=== PATIENT | male | born 1965 | race Caucasian/White ===

== ENCOUNTER 2021-04-05 11:15 | Emergency (ER) | payer OTHER, SELFPAY ==
[2021-04-05 11:24] VITALS: BP 146/79; PULSE 82; RESP 16; TEMP 36.5; O2SAT 100
--- NOTE | 2021-04-05 11:29 | ED.EAR ---
HPI - Ear Problem General Chief complaint: Ear Stated complaint: EARS CLOGGED Time Seen by Provider: 04/05/21 11:30 Source: patient and RN notes reviewed History of Present Illness HPI Narrative: Patient is a 56-year-old male who presents the urgent care with complaints of bilateral ears clogged. Patient states that he had decreased hearing on the right. States that he is tried to use Debrox for the last couple days which has not resolved the issue. Denies of any other acute complaints. No acute distress noted. Patient aware of the plan of care. Some parts of this dictation were generated by voice recognition software and may contain typographical and/or grammatical inaccuracies. Related Data Allergies Allergy/AdvReac Type Severity Reaction Status Date / Time No Known Allergies Allergy Verified 04/05/21 11:22 Review of Systems Review of Systems: CONSTITUTIONAL: Denies fever, chills, or sweats. EYES: Denies visual changes, redness, or discharge. ENT: Denies rhinorrhea, congestion, sore throat. Reports a bilateral ears clogged with decreased hearing on the right CARDIOVASCULAR: Denies chest pain, palpitations, or edema. RESPIRATORY: Denies cough or dyspnea. GASTROINTESTINAL: Denies abdominal pain, nausea, vomiting, or diarrhea. GENITOURINARY: Denies dysuria or hematuria. SKIN: Denies rash or itching. MUSCULOSKELETAL: Denies back pain, joint pain, or myalgia. NEUROLOGIC: Denies headache, numbness, or weakness. All other systems reviewed are negative, except as documented in HPI. PMFSH Comments At the time of my signature, I reviewed and agree with the nursing past medical, surgical, social, and family history. There is no relevant family history pertinent to the patient complaint. Exam Narrative: GENERAL: This is a well-nourished, well-developed patient, in no apparent distress. HEAD: normocephalic, atraumatic. EYES: PERRL. Sclera clear/white. Vision is grossly intact. EARS: External ears normal, auditory canals clear and without drainage, unable to visualize bilateral true EMs due to cerumen impaction. Hearing grossly intact. NOSE: External nose normal with no obvious nasal discharge, nares without redness, no rhinorrhea. THROAT: Mucous membranes moist, posterior pharynx clear. NECK: Neck supple CARDIOVASCULAR: Regular rate and rhythm without murmurs, gallops, or rubs. RESPIRATORY: Clear to auscultation. Breath sounds equal bilaterally. No wheezes, rales, or rhonchi. SKIN: warm, intact with no suspicious lesions or rash, good texture and turgor. NEURO: awake, alert, and oriented to person, place and time. There were no obvious focal neurologic abnormalities. EXTREMITIES: No clubbing, cyanosis, or edema. Course Vital Signs Vital signs: Vital Signs Temperature 97.7 F 04/05/21 11:24 Pulse Rate 82 04/05/21 11:24 Respiratory Rate 16 04/05/21 11:24 Blood Pressure 146/79 H 04/05/21 11:24 Pulse Oximetry 100 04/05/21 11:24 Temperature 97.7 F 04/05/21 11:24 Pulse Rate 82 04/05/21 11:24 Respiratory Rate 16 04/05/21 11:24 Blood Pressure 146/79 H 04/05/21 11:24 Pulse Oximetry 100 04/05/21 11:24 Reviewed-patient is informed that they may have pre-hypertension or hypertension based on a blood pressure reading in the department. I recommend the patient call the primary care provider listed on their discharge instructions or a physician of their choice this week to arrange follow-up for further evaluation of possible pre-hypertension or hypertension. Procedures Ear Wax Removal Both Ears: Cerumenolytic Used: other (50-50 peroxide and water) Results: Re-examined: cerumen removed completely TM Examination: TM(s) intact, normal appearance Patient Tolerated Procedure: well and no complications Complications: no problems Additional Comments: Resolved hearing on the right. Patient tolerated well. Cerumen impaction removed bilaterally with 50-50 peroxide and warm water
== END 2021-04-05 11:56 | disposition home or self-care (01) ==
PROVIDERS: Emergency Provider Nurse Practitioner Family; PCP Internal Medicine
DX: H61.23 Impacted cerumen, bilateral (principal)
CPT/HCPCS: 69210; 99213; G0463

== ENCOUNTER 2022-10-14 13:31 | Emergency (ER) | payer OTHER, SELFPAY ==
--- NOTE | ~2022-10-14 | XR_ITS ---
XR hand LT min 3V DATE: 10/14/2022 14:04 INDICATION: Pain at first digit interphalangeal joint TECHNIQUE: 4 views of left hand COMPARISON: None FINDINGS: There is polyarticular osteoarthritis, involving particularly the first carpometacarpal jamil nt, in addition to the first through third metacarpophalangeal joints and multiple interphalangeal margie ints, especially the proximal and distal interphalangeal joints of the second digit, also involving t he interphalangeal joint of the first digit. Prominent cystic change of the navicular bone. No recent fracture or dislocation is detected. IMPRESSION: Polyarticular osteoarthritis Prominent cystic change of the navicular bone Reviewed, dictated and finalized at location A.
[2022-10-14 13:47] VITALS: BP 148/96; PULSE 93; RESP 16; TEMP 37.1; O2SAT 98
--- NOTE | 2022-10-14 15:09 | ED_ITS ---
HPI - Extremity Problem General Chief complaint: Extremity Problem,Nontraumatic Stated complaint: left thumb pain for years Time Seen by Provider: 10/14/22 13:59 Source: patient History of Present Illness HPI Narrative: 57 years old white male complaining of a cystlike lesion under the skin of the left thumb for months, got worse today. He denies any injury. Related Data Allergies Allergy/AdvReac Type Severity Reaction Status Date / Time No Known Allergies Allergy Verified 04/05/21 11:22 Review of Systems Review of Systems: All systems reviewed & are unremarkable except as noted in HPI and below Exam Narrative: General appearance: Well-developed, well-nourished Skin: Normal color Chest and respiratory: Airway patent, no respiratory distress, no accessory muscle use Heart: Regular rate/rhythm Vascular: Normal peripheral pulses, normal capillary refill. Musculoskeletal: Left thumb exam showed small ganglion cyst 0.5 x 0.5 cm at the dorsal side, tender to palpation Neurologic: Alert and oriented ?3, CLINICAL TRAINING COORDINATOR is normal as tested, no gross motor deficit Course Vital Signs Vital signs: Vital Signs Temperature 37.1 C 10/14/22 13:47 Pulse Rate 93 10/14/22 13:47 Respiratory Rate 16 10/14/22 13:47 Blood Pressure 148/96 H 10/14/22 13:47 Pulse Oximetry 98 10/14/22 13:47 Oxygen Delivery Room Air 10/14/22 13:47 Temperature 37.1 C 10/14/22 13:47 Pulse Rate 93 10/14/22 13:47 Respiratory Rate 16 10/14/22 13:47 Blood Pressure 148/96 H 10/14/22 13:47 Pulse Oximetry 98 10/14/22 13:47 Oxygen Delivery Room Air 10/14/22 13:47 MDM - Extremity (Nontraumatic) MDM Narrative Medical decision making narrative: Patient presents with a cyst at left thumb, physical examination is consistent with ganglion cyst, x-ray of the left hand showed no acute abnormalities, patient to follow-up with hand surgeon/Dr. Whitney. And to take Tylenol, ibuprofen as needed. Differential Diagnosis Differential diagnosis: Likely other (Ganglion cyst, strain/sprain) Imaging Data Radiologist's impression: Impressions Hand X-Ray 10/14/22 14:20 IMPRESSION: Polyarticular osteoarthritis Prominent cystic change of the navicular bone Critical Care Time Critical Care Time Critical Care Time: No Discharge Plan Discharge Clinical Impression: Ganglion cyst of both hands Patient Disposition: Home, Self-Care Condition: Stable Instructions: Ganglion Cyst (ED) Additional Instructions: Return if symptoms are worsening , call Dr. Whitney for appointment, take Tylenol, ibuprofen as as needed for aches and pain, continue home medications. Prescriptions: No Action ofloxacin 0.3 % drops 10 drp EACH EAR DAILY 7 Days Qty: 10 0RF Follow-up/Referrals: Christoph,Seng Voss MD [Primary Care Provider] - Wyatt Whitney MD [Physician] - 10/15/22
== END 2022-10-14 15:19 | disposition home or self-care (01) ==
PROVIDERS: Emergency Provider Emergency Medicine; PCP Internal Medicine
DX: M67.442 Ganglion, left hand (principal); M67.441 Ganglion, right hand
CPT/HCPCS: 73130; 99283